=== PATIENT | female | born 1965 | race Caucasian/White ===

== ENCOUNTER 2017-09-23 23:24 | Emergency (ER) | payer OTHER ==
[2017-09-23] MEDS ORDERED: LORazepam 2 MG/ML SDV ONE (23:33)
[2017-09-23] MEDS ORDERED: LORazepam 2 MG/ML SDV IVPUSH ONE (23:35)
[2017-09-23] MEDS ORDERED: Sodium Chloride 0.9% 10 ML Syringe FLUSH PRN (23:49)
[2017-09-23] MEDS ORDERED: Sodium Chloride 0.9% 1,000 ML IV ONE (23:55)
[2017-09-24] MEDS ORDERED: Ondansetron 4 MG/2 ML SDV IVPUSH ONE (00:23)
--- NOTE | 2017-09-24 00:57 | ER ---
DATE SEEN: 09/23/2017 CHIEF COMPLAINT: Allergic reaction. HISTORY OF PRESENT ILLNESS: This is a 52-year-old female who presented to the emergency room after 30 minutes of what she described as an allergic reaction. She was painting this morning and came into contact with [employer] Ultra paint while she was painting trims in her bedroom. The contact was about 20 minutes, took a break another 30 minutes later. Tonight, she was well until about 30 minutes ago and experienced shaking, seizure-like activities, difficulty with controlling body movements which was progressively getting worse. She states that she had a similar reaction in 2014, which included almost seizure-like activity from paint. At that time, she presented with neck pain, headaches, nausea that was intractable and was prescribed Topamax for possible seizure prophylaxis. She also states that she has a history of adrenal insufficiency that is chronic and also relates to allergies. REVIEW OF SYSTEMS: Tonight, she has no chest pain. She has no hearing problems, vision disturbance, complains of feeling anxious and nervous, which she attributes to the paint contact. ALLERGIES: Latex and nickel. CURRENT MEDICATIONS: One multivitamin a day. PHYSICAL EXAMINATION: GENERAL: She is anxious-appearing. VITAL SIGNS: Her blood pressure initially 134/115, pulse is 107, oxygenation is 100% while breathing on room air, respiratory rate is 20. MENTAL STATUS: Normal affect. Normal speech. No signs of any psychosis, very tremulous and restless. CARDIOVASCULAR: Normal. RESPIRATORY SYSTEM: Clear entirely. NEUROLOGIC: No focal findings. IMPRESSION: 1. Question allergic reaction. 2. Anxiety. PLAN: I gave her lorazepam. Her symptoms subsided significantly. I called the [facility] and discussed the case with Yelena at the [facility]. She felt the contact with paint would be mostly respiratory and traditionally also typically expected within an hour of contact and lasts only a couple hours. It seems like the reaction she described was atypical. The patient does claim that she does get delayed responses to allergies. I gave her 1 L of normal saline by request and discharged her home to follow up with her PCP and possibly request an allergy testing with an living specialist. Time seen was 11:45 p.m. /[id number] RONNY/NICK
[2017-09-24 03:20] VITALS: BP 120/60
== END 2017-09-24 01:00 | disposition home or self-care (01) ==
LOC: FB.ED 23:24
DX: F41.9 Anxiety disorder, unspecified (principal); Z91.040 Latex allergy status; Z91.09 Other allergy status, other than to drugs and biological substances
CPT/HCPCS: 96361; 96374; 96375; 99283; J2060; J2405; J7040; J7050